=== PATIENT | female | born 1985 | race African-American/Black ===

== ENCOUNTER 2023-02-22 23:08 | Emergency (ER) | payer MEDICAID ==
[~2023-02-22] VITALS: Ht 160 cm; Wt 84.1 kg
[2023-02-22] MEDS ORDERED: morphine 4 MG/ML inj SYRINge IV STA (23:14)
[2023-02-22] MEDS ORDERED: ondansetron/PF 4mg/2ml inj IV STA (23:14)
[2023-02-22 23:23] VITALS: TEMP 98.5
[2023-02-22] MEDS ORDERED: famotidine/PF 10 mg/ml inj IV ONE (23:35)
[2023-02-22] MEDS ORDERED: normal saline 1000ML IV soln IVB ONE (23:35)
[2023-02-22] MEDS ORDERED: ketorolac trometh. 30mg/ml inj. IV ONE (23:35)
[2023-02-22] MEDS ORDERED: LORazepam 2 mg/ml vial IV ONE (23:35)
[2023-02-22 23:45] LABS: URINE HCG NEGATIVE (NEG)
[2023-02-22 23:45] LABS: BASOPHILS # (AUTO) 0.1 X10'3 (0-0.2); BASOPHILS % (AUTO) 0.8 % (0-1); EOSINOPHILS # (AUTO) 0.1 X10'3 (0-0.9); HEMATOCRIT 39.3 % (35.0-45.0); HEMOGLOBIN 13.2 g/dl (12.0-16.0); LYMPHOCYTES # (AUTO) 3.4 X10'3 (1.1-4.8); LYMPHOCYTES % (AUTO) 38.3 % (21-51); MEAN CORPUSCULAR HEMOGLOBIN 26.6 PG (27.0-31.0); MEAN CORPUSCULAR HGB CONC 33.6 g/dL (33.0-36.5); MEAN CORPUSCULAR VOLUME 79.2 FL (78-98); MEAN PLATELET VOLUME 7.8 FL (7.4-10.4); MONOCYTES # (AUTO) 0.5 X10'3 (0-0.9); NEUTROPHILS # (AUTO) 4.8 X10'3 (1.8-7.7); NEUTROPHILS % (AUTO) 53.9 % (42-75); PLATELET COUNT 292 X10'3 (140-440); RED BLOOD COUNT 4.96 X10'6 (4.20-5.60); RED CELL DISTRIBUTION WIDTH 13.4 % (11.5-14.5); WHITE BLOOD COUNT 8.9 X10'3 (4.5-11.0)
[2023-02-22 23:46] LABS: BILIRUBIN,URINE NEGATIVE (Neg); CLARITY,URINE SLIGHTLY CLOUDY (Clear); COLOR,URINE STRAW (Yellow); GLUCOSE, URINE >=1000 mg/dl (Neg); KETONES,URINE 15 mg/dl (Neg); LEUKOCYTE ESTERASE ,URINE TRACE (Neg); NITRITES, URINE POSITIVE (Neg); OCCULT BLOOD,URINE TRACE-INTACT (Neg); PH,URINE 7.5 (4.8-8.0); PROTEIN,URINE 30 mg/dl (Neg); UROBILINOGEN,URINE 0.2 E.U/dL (0.2-1.0)
[2023-02-22 23:48] LABS: UA COLLECTION TYPE VOIDED
[2023-02-22 23:54] LABS: ALANINE AMINOTRANSFERASE 16 U/L (12-78); ALBUMIN 2.9 G/DL (3.4-5.0); ALBUMIN/GLOBULIN RATIO 0.7 (1.1-1.5); ALKALINE PHOSPHATASE 92 IU/L (46-116); ANION GAP 7 (8-16); ASPARTATE AMINO TRANSFERASE 12 U/L (10-37); BILIRUBIN,TOTAL 0.3 MG/DL (0.1-1.0); BLOOD UREA NITROGEN 8 MG/DL (7-18); CALCIUM 9.6 MG/DL (8.5-10.1); CHLORIDE 100 MMOL/L (99-107); CREATININE 0.73 MG/DL (0.40-0.90); GLUCOSE 391 MG/DL (70-104); LIPASE 96 U/L (73-393); POTASSIUM 3.9 MMOL/L (3.5-5.1); SODIUM 133 MMOL/L (135-145); TOTAL CARBON DIOXIDE 26.4 MMOL/L (24-32); TOTAL PROTEIN 7.3 G/DL (6.4-8.2); eCRCL 89 ML/MIN; eGFR > 90 ML/MIN
[2023-02-22] MEDS ORDERED: iohexol 300mg/ml 100ml inj. ONE (23:54)
[2023-02-23] LABS: BACTERIA,URINE 4+ /HPF (Neg); SQUAMOUS EPITHELIAL CELL,UR FEW /LPF (FEW); TRANSITIONAL EPI CELLS,URINE FEW /HPF; WBC,URINE 20-30 /HPF (0-4)
[2023-02-23 00:01] LABS: WBC CLUMPS,URINE FEW /HPF (NEGATIVE)
[2023-02-23] MEDS ORDERED: CefTRIAXone/D5W-Rocephin 1gm 50 ML IV ONE (02:50)
[2023-02-23] MEDS ORDERED: NO HOME MEDS (03:03)
[2023-02-23] MEDS ORDERED: ketorolac trometh. 30mg/ml inj. IV ONE (04:45)
[2023-02-23] MEDS ORDERED: morphine 4 MG/ML inj SYRINge IV ONE (04:45)
[2023-02-23] MEDS ORDERED: metoclopramide 5 mg/ml inj IV ONE (04:45)
--- NOTE | 2023-02-23 04:47 | NUR ---
pt requesting more pain medication. dr ibarra notified, awaiting orders.
--- NOTE | 2023-02-23 05:14 | NUR ---
called to ask why the CT report is taking so long, believed to possibly be an IT issue. Called IT by the number they gave me [phone] He will check into it and call back.
[2023-02-23 07:16] VITALS: BP 97/72; PULSE 70; RESP 15; O2SAT 97
[2023-02-23] MEDS ORDERED: ACET-1995 PO (07:21)
[2023-02-23] MEDS ORDERED: NAPR-56 PO (07:21)
[2023-02-23] MEDS ORDERED: CEPH-585 PO (07:21)
[2023-02-23] MEDS ORDERED: METO-292 PO (07:21)
== END 2023-02-23 08:43 | disposition home or self-care (01) ==
LOC: EEVIPCON 23:09 → ER 23:09
DX: E11.9 Type 2 diabetes mellitus without complications (principal); N39.0 Urinary tract infection, site not specified; R10.9 Unspecified abdominal pain
CPT/HCPCS: 36415; 74177; 76856; 80053; 81001; 81025; 83690; 85025; 87077; 87088; 87186; 93976; 96361; 96365; 96375; 96376; 99285; J0696; J1885; J2060; J2270; J2405; J2765; J3490; J7030; Q9967